=== PATIENT | female | born 1950 | race African-American/Black ===

== ENCOUNTER 2017-05-17 14:36 | Outpatient (CLI) | payer OTHER ==
[2016-03-12 14:33] VITALS: BMI 39.4
--- NOTE | 2017-05-17 16:07 | MRI ---
EXAM: MRI right shoulder without contrast COMPARISON: None available. HISTORY: Right shoulder pain. TECHNIQUE: Multiplanar noncontrast MR images of the right shoulder were acquired using a 1.2 Lulu magnet. FINDINGS: No recent radiographs of the right shoulder are available for comparison and radiographic correlation is recommended. There is moderately severe supraspinatus, infraspinatus and subscapularis tendinosis. There is a pa rtial-thickness articular surface/rim rent tear involving insertional fibers of the supraspinatus me asuring 3 mm medial lateral dimension and extending through the supraspinatus/infraspinatus junction . There is linear intrasubstance fissuring/tearing extending more proximally through the critical zo ne of the supraspinatus and infraspinatus with possible articular surface extension at that level. M inimal linear intrasubstance fissuring/tearing of the distal subscapularis. No full-thickness rotat or cuff tear or tendon retraction. Small amount of fluid in the subacromial/subdeltoid bursa. Mild to moderate atrophy of the supraspinatus, infraspinatus and subscapularis. Limited assessment of the glenoid labrum on this non arthrographic study with suspected intrasubstan ce degeneration. No paralabral cyst identified. Mild glenohumeral joint osteoarthrosis without an acute fracture or dislocation. The long head of the biceps is located within the bicipital groove with thinning of the tendon withi n its intra-articular and bicipital groove segments related to tendinosis/chronic partial tear. Marked hypertrophic degenerative changes of the acromioclavicular joint with inferiorly directed ost eophytes representing potential source of subacromial impingement. Mild anterior downsloping of the acromion. No evidence of an os acromiale or abnormal widening of the acromioclavicular joint space . No soft tissue mass identified. IMPRESSION: 1. Moderately severe rotator cuff tendinosis with partial tearing of the supraspinatus, infraspinat us and subscapularis as described. No full-thickness rotator cuff tear or tendon retraction. Mild to moderate rotator cuff muscle atrophy. 2. Marked hypertrophic degenerative changes of the acromioclavicular joint representing potential s ource of subacromial impingement. 3. Tendinosis / chronic partial tear of the long head of the biceps. 4. Mild glenohumeral joint osteoarthrosis.
== END 2017-05-17 14:37 | disposition home or self-care (01) ==
LOC: RAD 14:36
PROVIDERS: ATTEND Internal Medicine
DX: M25.511 Pain in right shoulder (principal)

== ENCOUNTER 2017-08-09 15:26 | Inpatient (IN) ==
--- NOTE | 2017-08-09 15:48 | ED.PDOC ---
General ED Provider: Dr. NARGIS GIMENEZ JR Chief Complaint: Hypertension Stated Complaint: has been having blood pressure problems for 1 week. highest bp at home was 233/112. pain down left arm. has been taking bp meds as usual. [ End ]96.7 64 20 97% 217/100 8/10 Time Seen by Physician: 16:10 Mode of Arrival: Walk-In Information Source: Patient Exam Limitations: No limitations Primary Care Provider: MERCED CHAN Nursing and Triage Documentation Reviewed and Agree: No Review of Systems - Review Of Systems Constitutional: Reports: Malaise Eyes: Reports: No symptoms Ears, Nose, Mouth, Throat: Reports: No symptoms Respiratory: Reports: No symptoms Cardiac: Reports: No symptoms GI: Reports: No symptoms : Reports: No symptoms Musculoskeletal: Reports: No symptoms Skin: Reports: Rash (family issues with bedbugs notes rash left arm) Neurological: Reports: Anxiety Endocrine: Reports: Other Hematologic/Lymphatic: Reports: Other All Other Systems: Other Past Medical History - Past Medical History Previously Healthy: Yes Endocrine: Reports: DM 2 Cardiovascular: Reports: CAD, Hypertension, CHF Respiratory: Reports: None Hematological: Reports: None Gastrointestinal: Reports: None Genitourinary: Reports: None Neuro/Psych: Reports: Anxiety, Depression Musculoskeletal: Reports: Arthritis Cancer: Reports: None Last Menstrual Period: none Other Pertinent Past Medical History: lymphedema, polymyositis, cyst on kidney, thyroid nodules,ostoarthritis - Surgical History General Surgical History: Reports: Orthopedic, Other (KNEE/RT,HERNIA,SCAR TISSUE /ARMS), Unknown - Family History Family History: Reports: Unknown - Social History Smoking Status: Current every day smoker, Light tobacco smoker Hx Substance Use: No Alcohol Screening: None Physical Exam - Physical Exam Appearance: Well-appearing Pain Distress: Moderate Eyes: MICHAEL, EOMI, Conjunctiva clear ENT: Ears normal, Nose normal, Oropharynx normal Neck: Supple Respiratory: Breath sounds diminished Cardiovascular: RRR, Pulses normal, No rub, No murmur, Bradycardia GI/: Soft, Nontender, No masses, Bowel sounds normal, No Organomegaly Musculoskeletal: Normal strength, ROM intact, No calf tenderness, Edema Skin: Warm, Dry, Normal color Neurological: Sensation intact, Motor intact, Reflexes intact, Cranial nerves intact, Alert, Oriented Psychiatric: Affect appropriate, Mood appropriate Interpretation - EKG Interpretation Time of EKG #1: 15:52 Rate: Kushal Rhythm: Sinus (57) ST Segment: Other (imi) Interpretation: nonacute Critical Care Note - Critical Care Note Total Time (mins): 30 Course - Course Hematology/Chemistry: 08/09/17 16:05 08/09/17 16:05 Orders, Labs, Meds: Lab Review 08/09/17 08/09/17 08/09/17 16:05 16:05 16:05 WBC 9.19 RBC 5.45 H Hgb 14.2 Hct 44.1 MCV 80.9 L MCH 26.1 L MCHC 32.2 RDW Coeff of Jluis 17.1 H Plt Count 262 Immature Gran % (Auto) 0.3 Neut % (Auto) 44.3 Lymph % (Auto) 44.1 [place] % (Auto) 7.0 Eos % (Auto) 4.1 Baso % (Auto) 0.2 Immature Gran # (Auto) 0.0 Neut # 4.1 Lymph # 4.1 H [place] # 0.6 Eos # 0.4 Baso # 0.0 Sodium 139 Potassium 4.4 Chloride 103 Carbon Dioxide 26 Anion Gap 14.4 BUN 12 Creatinine 0.72 Estimated GFR (MDRD) 98.00 BUN/Creatinine Ratio 16.66 Glucose 98 Calcium 9.8 Total Bilirubin 0.27 AST 13 L ALT 9 L Alkaline Phosphatase 94 Total Creatine Kinase 29 Troponin I < 0.0100 B-Natriuretic Peptide 71 Total Protein 6.8 Albumin 2.9 L Globulin 3.9 Albumin/Globulin Ratio 0.74 Orders Category Date Time Status ADMIT PATIENT INPATIENT .TO [facility] (MONITORED BED) ADMISSION 08/09/17 18: 29 Active EKG-(ED ONLY) Stat CARDIO 08/09/17 16:19 Completed EKG-(IP & OP ONLY) DAILY CARDIO 08/10/17 06:00 Ordered EKG-(IP & OP ONLY) DAILY CARDIO 08/11/17 06:00 Ordered ACTIVITY .Early Mobilization for VTE Prevention CARE 08/09/17 18:29 Active ACTIVITY .Up ad Kandice CARE 08/09/17 18:29 Active INTAKE & OUTPUT Q8HR CARE 08/09/17 18:29 Active TELEMETRY MONITORING TELE CARE 08/09/17 18:31 Active VITAL SIGNS Q4HR CARE 08/09/17 18:29 Active REGULAR DIET DIETARY 08/09/17 Dinner Ordered ED IV/MEDIPORT/POWERPORT .ONCE EMERGENCY 08/09/17 16:19 Active B-TYPE NATRIURETIC PEPTIDE Stat LAB 08/09/17 16:05 Completed CBC W/ AUTO DIFF DAILY@0600 LAB 08/10/17 06:00 Ordered CBC W/ AUTO DIFF DAILY@0600 LAB 08/11/17 06:00 Ordered CBC W/ AUTO DIFF Stat LAB 08/09/17 16:05 Completed COMPREHENSIVE METABOLIC PANEL DAILY@0600 LAB 08/10/17 06:00 Ordered COMPREHENSIVE METABOLIC PANEL DAILY@0600 LAB 08/11/17 06:00 Ordered COMPREHENSIVE METABOLIC PANEL Stat LAB 08/09/17 16:05 Completed CREATINE KINASE Q8H LAB 08/10/17 00:45 Ordered CREATINE KINASE Q8H LAB 08/10/17 08:45 Ordered CREATINE KINASE Stat LAB 08/09/17 16:05 Completed TROPONIN I Q8H LAB 08/10/17 00:45 Ordered TROPONIN I Q8H LAB 08/10/17 08:45 Ordered TROPONIN I Stat LAB 08/09/17 16:05 Completed 0.9 % Sodium Chloride [Premix 200Ml 0.86% Sodium MEDS 08/09/17 18:30 Ordered Chloride] 1 bag Nicardipine in NaCl, Iso-Osm [Cardene-NaCl 20 mg/200 ml Soln] 20 mg IV 5 mg/hr 0.9 % Sodium Chloride [Saline Flush] MEDS 08/09/17 16:19 Active 1 syr IVF PRN PRN Acetaminophen [Tylenol] MEDS 08/09/17 18:29 Ordered 650 mg PO Q4H PRN Enalaprilat Dihydrate [Vasotec IV] MEDS 08/09/17 15:49 Discontinued 1.25 mg IVP ONCE STA Nicardipine in NaCl, Iso-Osm [Cardene-NaCl 20 mg/200 ml MEDS 08/09/17 18:28 Discontinued Soln] 200 ml IV .STK-MED RESUSCITATION STATUS Routine OTHERS 08/09/17 18:29 Ordered CHEST, 1V AP ONLY Stat RADS 08/09/17 16:19 Completed Medications Generic Name Dose Route Start Last Admin Trade Name Freq PRN Reason Stop Dose Admin Acetaminophen 650 mg 08/09/17 18:29 Tylenol PO Q4H PRN Mild Pain NICARDIPINE IN NACL, ISO-OSM 200 mls @ 50 mls/hr 08/09/17 18:30 08/09/17 19: 32 20 mg/ Sodium Chloride IV 10 mg/hr .Q4H PADILLA 100 mls/hr Protocol Titration 5 MG/HR Sodium Chloride 1 syr 08/09/17 16:19 Saline Flush IVF PRN PRN To flush IV Discontinued Medications Generic Name Dose Route Start Last Admin Trade Name Freq PRN Reason Stop Dose Admin Enalaprilat 1.25 mg 08/09/17 15:49 08/09/17 16:20 Vasotec Iv IVP 08/09/17 15:50 1.25 mg ONCE STA Administration Vital Signs: Temp Pulse Resp BP Pulse Ox 08/09/17 15:27 96.7 F L 64 20 217/100 H 97 HUY Risk Score HUY Risk Score: Risk Score Odds of by 30D 0 0.1 (0.1-0.2) 1 0.3 (0.2-0.3) 2 0.4 (0.3-0.5) 3 0.7 (0.6-0.9) 4 1.2 (1.0-1.5) 5 2.2 (1.9-2.6) 6 3.0 (2.5-3.6) 7 4.8 (3.8-6.1) Departure - Departure Time of Disposition: 19:47 Disposition: ADMITTED INPATIENT Discharge Problem: Hypertensive urgency Condition: Stable Pt referred to PMD for follow-up: Yes Allergies/Adverse Reactions: Allergies duloxetine HCl [From Cymbalta] Allergy (Severe, Verified 08/09/17 15:33) Chest Tightness morphine Allergy (Intermediate, Verified 08/09/17 15:33) Unknown Home Medications: Ambulatory Orders Atenolol 50 mg PO BID 11/23/15 Captopril 50 mg PO BID 11/23/15 Folic Acid 2 mg PO DAILY 11/23/15 Hydrocodone/Acetaminophen [Lortab 5-325 mg Tablet] 1 tab PO TID 11/23/15 Metformin HCl [Glucophage] 500 mg PO DAILY 11/23/15 Ranitidine HCl 150 mg PO BID 11/23/15 Venlafaxine HCl [Effexor Xr] 150 mg PO DAILY 11/23/15 Aspirin [Aspirin EC] 81 mg PO DAILYWM 03/18/16 Calcium Carbonate/Vitamin D3 [Calcium 500 + D Tablet] 1 each PO DAILY 03/18/16
[2017-08-09] MEDS ORDERED: VASOTEC IV IVP STA (15:49)
[2017-08-09 16:34] LABS: BASOPHILS % (AUTO) 0.2 % (0.0-3.0); EOSINOPHILS # (AUTO) 0.4 K/ul (0.0-0.7); EOSINOPHILS % (AUTO) 4.1 % (0.0-7.0); HEMATOCRIT 44.1 % (37.0-47.0); HEMOGLOBIN 14.2 g/dl (12.0-16.0); IMMATURE GRANULOCYTE % (AUTO) 0.3 % (0.0-5.0); LYMPHOCYTES # (AUTO) 4.1 K/uL (0.60-3.4); LYMPHOCYTES % (AUTO) 44.1 (10.0-50.0); MEAN CORPUSCULAR HEMOGLOBIN 26.1 pg (27.0-31.0); MEAN CORPUSCULAR HGB CONC 32.2 (31.8-35.4); MEAN CORPUSCULAR VOLUME 80.9 fl (81.0-99.0); MONOCYTES # (AUTO) 0.6 K/uL (0.4-2.0); NEUTROPHILS # (AUTO) 4.1 K/ul (2.0-6.9); NEUTROPHILS % (AUTO) 44.3; PLATELET COUNT 262 10^3/uL (140-440); RED BLOOD COUNT 5.45 10^6/ul (4.20-5.40); WHITE BLOOD COUNT 9.19 K/ul (4.6-10.2)
--- NOTE | 2017-08-09 16:47 | DI ---
EXAM: CHEST FRONTAL VIEW HISTORY: Chest pain. COMPARISON: 09/28/2012 FINDINGS: Heart size and mediastinum remain within normal limits. Lungs are free of infiltrate. No consolidation or pleural fluid. There is no pneumothorax or acute bony finding. IMPRESSION: Findings within normal limits.
[2017-08-09] MEDS ORDERED: NICARDIPINE IV ONE (16:52)
[2017-08-09] MEDS ORDERED: SODIUM CHLORIDE IV ONE (16:52)
[2017-08-09 16:59] LABS: SODIUM 139 mmol/L (136-145)
[2017-08-09 17:00] LABS: ALANINE AMINOTRANSFERASE 9 U/L (12-78); ALBUMIN 2.9 g/dL (3.4-5.0); ALBUMIN/GLOBULIN RATIO 0.74; ALKALINE PHOSPHATASE 94 U/L (53-141); ANION GAP 14.4; ASPARTATE AMINO TRANSFERASE 13 U/L (15-37); BILIRUBIN,TOTAL 0.27 mg/dL (0.00-1.20); BLOOD UREA NITROGEN 12 mg/dL (7-18); BUN/CREATININE RATIO 16.66; CALCIUM 9.8 mg/dL (8.2-10.2); CARBON DIOXIDE 26 mmol/L (23-31); CHLORIDE 103 mmol/L (98-107); CREATINE KINASE 29 U/L; CREATININE 0.72 mg/dL (0.60-1.30); GLUCOSE 98 mg/dL (82-115); POTASSIUM 4.4 mmol/L (3.5-5.10); TOTAL PROTEIN 6.8 g/dL (5.8-8.1)
[2017-08-09] MEDS ORDERED: CARDENE-NACL 20 MG/200 ML SOLN 200 ML IV ONE ×2 (18:28→21:45)
[2017-08-09] MEDS: CARDENE-NACL 20 MG/200 ML SOLN 20 MG in PREMIX 200ML 0.86% SODIUM CHLORIDE 1 BAG IV SCH ×2 (18:35→21:49)
[2017-08-09] MEDS ORDERED: LASIX IVP STA (19:52)
[2017-08-09 20:47] VITALS: BMI 36.5
[2017-08-09] MEDS ORDERED: NON-FORMULARY MEDICATION (Ranitidine Hcl [Ranitidine Hcl] 150 MG) PO SCH ×22 (21:00)
[2017-08-09] MEDS ORDERED: CAPOTEN ONE (21:19)
[2017-08-09] MEDS ORDERED: ZANTAC ONE (21:19)
[2017-08-09] MEDS: CAPTOPRIL 50 MG PO SCH ×22 (21:33)
[2017-08-09] MEDS: TYLENOL PO PRN (21:33)
[2017-08-09] MEDS: TENORMIN PO SCH (21:33)
[2017-08-09] MEDS: NORCO 5-325 PO SCH (21:34)
[2017-08-10 01:47] LABS: ALBUMIN 2.8 g/dL (3.4-5.0); ALBUMIN/GLOBULIN RATIO 0.78; ANION GAP 11.6; BILIRUBIN,TOTAL 0.33 mg/dL (0.00-1.20); BUN/CREATININE RATIO 18.3; CALCIUM 10.1 mg/dL (8.2-10.2); CREATININE 0.71 mg/dL (0.60-1.30); POTASSIUM 3.6 mmol/L (3.5-5.10); TOTAL PROTEIN 6.4 g/dL (5.8-8.1)
[2017-08-10 01:55] LABS: BASOPHILS % (AUTO) 0.3 % (0.0-3.0); EOSINOPHILS # (AUTO) 0.3 K/ul (0.0-0.7); EOSINOPHILS % (AUTO) 2.8 % (0.0-7.0); HEMATOCRIT 43.4 % (37.0-47.0); HEMOGLOBIN 14.2 g/dl (12.0-16.0); IMMATURE GRANULOCYTE % (AUTO) 0.4 % (0.0-5.0); LYMPHOCYTES # (AUTO) 3.7 K/uL (0.60-3.4); LYMPHOCYTES % (AUTO) 40.6 (10.0-50.0); MEAN CORPUSCULAR HEMOGLOBIN 26.3 pg (27.0-31.0); MEAN CORPUSCULAR HGB CONC 32.7 (31.8-35.4); MEAN CORPUSCULAR VOLUME 80.4 fl (81.0-99.0); MONOCYTES # (AUTO) 0.5 K/uL (0.4-2.0); MONOCYTES % (AUTO) 4.9 (0-10); NEUTROPHILS # (AUTO) 4.7 K/ul (2.0-6.9); PLATELET COUNT 249 10^3/uL (140-440); TROPONIN I 0.013 ng/ml (0.0000-0.4000); WHITE BLOOD COUNT 9.17 K/ul (4.6-10.2)
[2017-08-10] MEDS: CARDENE-NACL 20 MG/200 ML SOLN 20 MG in PREMIX 200ML 0.86% SODIUM CHLORIDE 1 BAG IV SCH ×4 (04:17→23:07)
[2017-08-10] MEDS: TYLENOL PO PRN (06:30)
[2017-08-10] MEDS ORDERED: GLUCOPHAGE PO SCH (08:00)
[2017-08-10] MEDS ORDERED: TORADOL IVP STA (08:11)
[2017-08-10] MEDS ORDERED: DECADRON 4 MG/ML SDV IM STA (08:11)
[2017-08-10] MEDS: CAPOTEN PO SCH ×2 (08:51→20:27)
[2017-08-10] MEDS: TENORMIN PO SCH ×2 (08:51→20:27)
[2017-08-10] MEDS ORDERED: NON-FORMULARY MEDICATION (Calcium Carbonate/Vitamin D3 [Calcium 500-Vit D3 400 Tablet] 1 E PO SCH (09:00)
[2017-08-10] MEDS ORDERED: CAPOTEN PO SCH (09:00)
[2017-08-10] MEDS ORDERED: NON-FORMULARY MEDICATION (Venlafaxine Hcl [Effexor Xr] 150 MG) PO SCH ×22 (09:00)
[2017-08-10 09:10] LABS: CREATINE KINASE 25 U/L
[2017-08-10] MEDS: ZANTAC PO SCH ×2 (10:56→17:57)
[2017-08-10] MEDS: FOLIC ACID PO SCH (10:56)
[2017-08-10] MEDS: CALCIUM 500 + VIT D 200 MG TABLET PO SCH (10:56)
[2017-08-10] MEDS: ASPIRIN EC PO SCH (10:56)
[2017-08-10] MEDS: EFFEXOR XR PO SCH (10:57)
[2017-08-10] MEDS: NORCO 5-325 PO SCH ×3 (10:58→21:03)
--- NOTE | 2017-08-10 11:01 | PN ---
DATE OF SERVICE: 08/09/17 SUBJECTIVE: 67-year-old black female came to the emergency room with having high blood pressure. She has been checking it at home and it has been registering more than 220. It is confirmed with the finding in the emergency room, patient was given Vasotec IV with practically no response. Blood pressure was still 220. I talked to Dr. Zhong. Nicardiopine drip should be started. PHYSICAL EXAMINATION: HEENT: Head normocephalic, atraumatic. Eyes: Extraocular muscles are intact. Pupils are equal, round and reactive to light and accommodation. Ears: No lesions. Nose appeared normal. Throat: No exudate or erythema. NECK: Supple. No JVD, no carotid bruit. No lymphadenopathy or thyromegaly. LUNGS: Decreased breath sounds but clear to auscultation. Percussion note normal. Chest symmetrical. HEART: S1, S2, no S3. No murmurs. No cyanosis or clubbing. No ascites. Pulses: Dorsalis pedis and posterior tibial pulses +1 to +2 both sides. ABDOMEN: Soft. Nontender. Bowel sounds active. No CVA tenderness. No mass felt. EXTREMITIES: No edema. Full range of motion of all extremities, equal. NEUROLOGIC: No focal deficit. Cranial nerves II through XII are grossly intact. No headache, no double vision or headache. SKIN: Not dry. Intact. Turgor - normal. LYMPHATIC: No palpable lymph nodes/no lymphedema. MUSCULOSKELETAL: Normal joints with no swelling. Muscle tone is normal. LABS: EKG - sinus rhythm, no acute changes. ASSESSMENT: 1. SEVERE HYPERTENSION PLAN: 1. Vasotec given 2. Will start Nicardipine drip 3. Will give further orders depending on what the patient's findings are CONDITION: Stable TIME SPENT: More than 30 minutes. Plan and coordination of the patient's care discussed in the presence of nurse. RYANNE
--- NOTE | 2017-08-10 11:10 | US ---
EXAM: Ultrasound retroperitoneal complete. HISTORY: Elevated blood pressure. COMPARISON: None available. TECHNIQUE: Multiple armas scale and color Doppler images. FINDINGS: Right kidney measures 10.1 x 4.9 x 4.5 centimeters and contains a simple cyst measuring ap proximately 6.1 x 5.1 x 5.7 cm. The left kidney measures 9.8 x 4.5 x 4 cm. No echogenic shadowing s tones are seen. Cortical echogenicity is normal. There is no hydronephrosis. Urinary bladder is unremarkable. IMPRESSION: 1. No acute sonographic abnormality of the kidneys. 2. Right renal cyst.
--- NOTE | 2017-08-10 11:11 | HP ---
DATE OF SERVICE: 08/09/17 REASON FOR HOSPITALIZATION: Hypertensive crisis. HISTORY OF PRESENT ILLNESS: This 67-year-old black female came to the Emergency Department with having high blood pressure. She has been checking it at home and it has been registering more than 220. It is confirmed with the finding in the emergency room. The patient was given Vasotec IV with practically no response. Blood pressure was still 220. I talked to Dr. Zhong. Nicardipine drip should be started. The patient was last seen in the office on May 17, 2017 and at the time her blood pressure was 110/64. Prior to that in January it was 150/80. PAST MEDICAL/SURGICAL HISTORY: 1. Hysterectomy 2. Breast biopsy 3. Polymyositis for a number of years 4. Diabetes mellitus, A1C 6.117 5. B12 deficiency 6. Generalized osteoarthritis 7. Depression controlled with Effexor 8. Neuropathy 9. Osteoarthritis 10. CAD 11. Lymphedema 12. Thyroid nodules 13. Tobacco use (smoker) REVIEW OF SYSTEMS: CONSTITUTIONAL: No night sweats. No fatigue, malaise, lethargy. No fever or chills. HEENT: Eyes: No visual changes. No eye pain. No eye discharge. ENT: No runny nose. No epistaxis. No sinus pain. No sore throat. No odynophagia. No ear pain. No congestion. RESPIRATORY: No cough, no congestion. No hemoptysis. No shortness of breath. CARDIOVASCULAR: No angina symptoms. No CHF symptoms. No atypical chest pain for CAD. No palpitations. No orthopnea. GASTROINTESTINAL: No abdominal pain. No nausea or vomiting. No diarrhea or constipation. No hematemesis. No hematochezia. GENITOURINARY: No urgency. No frequency. No dysuria. No hematuria. No obstructive symptoms. No discharge. No pain. No significant abnormal bleeding. MUSCULOSKELETAL: No musculoskeletal pain. No joint swelling. No arthritis. NEUROLOGICAL: No headache. No neck pain. No syncope. No seizures. No dizziness. PSYCHIATRIC: Not anxious. No depression. No suicidal thoughts. No homicidal thoughts. SKIN: No rash. No lesions. No wounds. ENDOCRINE: No unexplained weight loss. No weight gain. HEMATOLOGIC/LYMPHATIC: No anemia. No purpura. No petechiae. No prolonged or excessive bleeding. No palpable lymph nodes. PERSONAL/FAMILY/SOCIAL HISTORY: The patient is , lives by herself, does all activity of daily living. Very intelligent. No alcohol abuse. Heavy smoker. Father at 53, gunshot wound; mother at 64, doesn't know the cause. Two brothers, four sisters, three children. MEDICATIONS: (HOME) Metformin 500 mg p.o. daily Effexor 150 mg p.o. daily Ranitidine 150 mg p.o. b.i.d. Hydrocodone/Acetaminophen (Lortab 5-325 mg) one tab p.o. t.i.d. Folic Acid 2 mg p.o. daily Captopril 50 mg p.o. b.i.d. Atenolol 50 mg p.o. b.i.d. Aspirin 81 mg p.o. daily with meal Calcium Carbonate/Vitamin D3 one each p.o. daily ALLERGIES: DULOXETINE HCI, MORPHINE PHYSICAL EXAMINATION: VITAL SIGNS: Temperature 96.7, pulse 64, BP 217/100, respiratory rate 20, 02 sat 97. Height 5'2", weight 206 lbs. HEENT: Head normocephalic, atraumatic. Eyes: Extraocular muscles are intact. Pupils are equal, round and reactive to light and accommodation. Ears: No lesions. Nose appeared normal. Throat: No exudate or erythema. NECK: Supple. No JVD, no carotid bruit. No lymphadenopathy or thyromegaly. LUNGS: Decreased breath sounds. Clear to auscultation. Percussion note normal. Chest symmetrical. HEART: S1, S2, no S3. No murmurs. No cyanosis or clubbing. No ascites. Pulses: Dorsalis pedis and posterior tibial pulses +1 to +2 both sides. ABDOMEN: Soft. Nontender. Bowel sounds active. No CVA tenderness. No mass felt. EXTREMITIES: No edema. Full range of motion of all extremities, equal. NEUROLOGIC: No focal deficit. Cranial nerves II through XII are grossly intact. No headache, no double vision or headache. SKIN: Not dry. Intact. Turgor - normal. LYMPHATIC: No palpable lymph nodes/no lymphedema. MUSCULOSKELETAL: Normal joints with no swelling. Muscle tone is normal. LABS ON ADMISSION: Hemoglobin 14, hematocrit 44, WBC 9,000, normal differential. Creatinine 0.7, BUN 12, BNP 71, troponin less than 0.01. Liver profile normal. EKG normal sinus rhythm, no acute changes. ASSESSMENT: 1. HYPERTENSIVE URGENCY 2. DIABETES MELLITUS, TYPE 2 3. CHF 4. DEPRESSION 5. ANXIETY 6. OSTEOARTHRITIS 7. CAD 8. LYMPHEDEMA 9. THYROID NODULES 10. SMOKER PLAN: 1. Admit to SCU for monitoring 2. V/S q.4hr 3. Cardene drip on arrival 4. Medication management 5. Labs today 6. Cardiac labs q.8hr times 2 TIME SPENT: More than 70 minutes. MTDD
--- NOTE | 2017-08-10 11:15 | US ---
EXAM: Renal artery duplex Doppler HISTORY: Hypertension FINDINGS: Renal artery duplex Doppler. Flores-scale ultrasound, color Doppler imaging and spectral an alysis performed. Exam was described as technically difficult. Values presented included include the below. Aortic velocity (meters per second): 0.6 Aortic diameter: 1.7 cm. IVC: Open Renal veins: Open The right kidney measured 10.1 cm and the left kidney 9.8 cm. No noticeable hydronephrosis. Right renal artery peak systolic velocities (meters per second). Origin: 2.9 Mid: 2.4 Renal Hilum: 1.5 Right renal artery/Aortic Ratios: Origin: 4.8 Mid: 4.0 Renal Hilum: 2.5 Left renal artery peak systolic velocities (meters per second). Origin: 0.4 Mid: 1.5 Renal Hilum: 1.4 Left renal artery/Aortic Ratios: Origin: 0.7 Mid: 2.5 Renal Hilum: 2.3 Right renal resistive index was 1.0 Left renal resistive index was 1.0 IMPRESSION: Technically difficult exam especially on the right. The recorded peak systolic velociti es indicate hemodynamically significant stenosis of the right renal artery ostium and also mid renal artery. No hemodynamically significant stenosis identified on the left. Elevated bilateral renal resistive pascale bam at 1.0.
[2017-08-10] MEDS ORDERED: ZITHROMAX PO SCH (12:30)
--- NOTE | 2017-08-10 14:01 | PCM.PROG ---
Attending Provider: ATTENDING PROVIDER: Dr. MERCED CHAN DATE OF SERVICE: 08/10/17 SUBJECTIVE: This 67 year old BLACK/ F was hospitalized 08/09/17. The patient is hospitalized with severe hypertension. The patient's blood pressure is under control and Nicardipine drip is off. Blood pressure is 145/85. The patient's other problem is the beginning of bronchitis type of symptoms. No chest pain. REVIEW OF SYSTEMS: CONSTITUTIONAL: No night sweats. No fatigue, malaise, lethargy. No fever or chills. HEENT: Eyes: No visual changes. No eye pain. No eye discharge. ENT: No runny nose. No epistaxis. No sinus pain. No odynophagia. No congestion. RESPIRATORY: No cough, no congestion. No hemoptysis. No shortness of breath. CARDIOVASCULAR: No angina symptoms. No CHF symptoms. No atypical chest pain for CAD. No palpitations. No orthopnea.. GASTROINTESTINAL: No abdominal pain. No nausea or vomiting. No diarrhea or constipation. No hematemesis. No hematochezia. GENITOURINARY: No urgency. No frequency. No dysuria. No hematuria. No obstructive symptoms. No discharge. No pain. No significant abnormal bleeding. MUSCULOSKELETAL: No musculoskeletal pain; no joint swelling. NEUROLOGICAL: Awake, alert, oriented to time, place and person. No headache. No neck pain. No syncope. No seizures. No dizziness. PSYCHIATRIC: Not anxious. No depression. No suicidal thoughts. No homicidal thoughts. SKIN: No rash. No lesions. No wounds. ENDOCRINE: No unexplained weight loss. No weight gain. HEMATOLOGIC/LYMPHATIC: No anemia. No purpura. No petechiae. No prolonged or excessive bleeding. No palpable lymph nodes. PHYSICAL EXAMINATION: GENERAL: The patient is awake, alert and oriented, lying in bed in no distress. VITAL SIGNS: Temperature 98.3 F, Pulse 59, Respiratory Rate 14, BP 165/80, Pulse Ox 96% HEENT: Head normocephalic, atraumatic. Eyes: Extraocular muscles are intact. Pupils are equal, round and reactive to light and accommodation. Ears: No lesions. Nose appeared normal. Throat: No exudate or erythema. NECK: Supple. No JVD, no carotid bruit. No lymphadenopathy or thyromegaly. LUNGS: Decreased breath sounds. Clear to auscultation. Percussion note normal. Chest symmetrical. HEART: S1, S2, no S3. No murmurs. No cyanosis or clubbing. No ascites. Pulses: Dorsalis pedis and posterior tibial pulses +1 to +2 both sides. ABDOMEN: Soft. Non-tender. Bowel sounds active. No CVA tenderness. No mass felt. EXTREMITIES: No edema. Full range of motion of all extremities, equal. NEUROLOGIC: No focal deficit. Cranial nerves II through XII are grossly intact. No headache, no double vision or headache. SKIN: Not dry. Intact. Turgor-normal. LYMPHATIC: No palpable lymph nodes/no lymphedema. MUSCULOSKELETAL: Normal joints with no swelling. Muscle tone is normal. LAB REVIEW: 08/10/17 01:06 08/10/17 01:06 08/10/17 01:06: Sodium 139, Potassium 3.6, Chloride 104, Carbon Dioxide 27, Anion Gap 11.6, BUN 13, Creatinine 0.71, Estimated GFR (MDRD) 99.00, BUN/ Creatinine Ratio 18.30, Glucose 129 H, Calcium 10.1, Total Bilirubin 0.33, AST 13 L, ALT 9 L, Alkaline Phosphatase 90, Total Protein 6.4, Albumin 2.8 L, Globulin 3.6, Albumin/Globulin Ratio 0.78 08/10/17 01:06: WBC 9.17, RBC 5.40, Hgb 14.2, Hct 43.4, MCV 80.4 L, MCH 26.3 L, MCHC 32.7, RDW Coeff of Jluis 16.7 H, Plt Count 249, Immature Gran % (Auto) 0.4, Neut % (Auto) 51.0, Lymph % (Auto) 40.6, [place] % (Auto) 4.9, Eos % (Auto) 2.8, Baso % (Auto) 0.3, Immature Gran # (Auto) 0.0, Neut # 4.7, Lymph # 3.7 H, [place] # 0.5, Eos # 0.3, Baso # 0.0 08/10/17 01:06: Total Creatine Kinase 28, Troponin I 0.0130 ASSESSMENT: 1. Hypertension seems to be getting under control. 2. Acute bronchitis. PLAN: 1. 1/2 cc Decadron IM 2. Toradol 30 mg IV 3. Z-Pack 4. Captopril 75 mg b.i.d. 5. Renal blood flow - ultrasound and Doppler 6. DASH diet, BMI 37, advised weight loss Plan and coordination of the patient's care discussed in the presence of Academic Affairs Vice President and nurse. CONDITION: Stable SCRIBED BY: ABISAI RADER Senior Occupational Therapist scribed while in presence of service performed by Dr. MERCED CHAN on 08/10/17 ([id number])
--- NOTE | 2017-08-10 16:26 | CT ---
Exam: CTA of the abdomen and pelvis with intravenous contrast and 3-D MIP reformats. Reason for exam: Right renal artery stenosis. Doppler flow. Comparison: None available. FINDINGS: Mild atelectasis and scarring in the partially imaged lung bases. The liver is lower in attenuation in the spleen. The gallbladder, spleen, adrenal glands, and pancreas appear grossly unremarkable. There is a 6.3 cm hypodensity in the right inferior renal pole. There are several other smaller selwyn l hypodensities bilaterally. No hydronephrosis, nephrolithiasis, or hydroureter is seen in either ki dney. No intra-abdominal free air or pelvic free fluid. There is a tiny only fat containing rectus diastases. No focal small bowel dilatation or transition point. 8 mm hepatic hypodensity seen on axial image number 41. Nodular density is seen in the left breast parenchyma on axial image #7. Atherosclerotic disease is seen within the aorta and distal arterial vasculature. There is calcified and noncalcified atheromatous plaque seen within the abdominal aorta with contrast opacification see n in the superior mesenteric, celiac, paired renal, and inferior mesenteric arteries. There is contr ast opacification of the abdominal aorta to the common iliacs and external bifurcation. The external common iliac arteries bilaterally do not demonstrate contrast opacification. There is r econstitution at the level of the left and right femoral arteries likely secondary to collateralizati on. No aneurysmal dilatation or evidence of dissection. No suspicious appearing osteoblastic or osteolytic lesions. Impression: 1. There is contrast opacification of the superior mesenteric, celiac, paired renal, and inferior mes enteric arteries with dense atherosclerotic disease seen throughout the aorta and distal arterial vas culature. No significant contrast opacification is seen in the left or right external iliac arteries. Contrast opacification is seen at the level of the femoral arteries bilaterally likely secondary fr om collateralization. 2. Renal hypodensities measuring up to 6.3 cm are statistically cysts. Ultrasound evaluation may be performed for further characterization. 3. Nodular density in the left breast tissue. If clinical concern exists, mammographic consultation should be performed. 4. 8 mm hepatic hypodensity is too small to be accurately characterized
[2017-08-11] MEDS: CARDENE-NACL 20 MG/200 ML SOLN 20 MG in PREMIX 200ML 0.86% SODIUM CHLORIDE 1 BAG IV SCH ×3 (00:51→10:18)
[2017-08-11 05:12] LABS: BASOPHILS % (AUTO) 0.3 % (0.0-3.0); EOSINOPHILS # (AUTO) 0.1 K/ul (0.0-0.7); EOSINOPHILS % (AUTO) 0.6 % (0.0-7.0); HEMATOCRIT 39.1 % (37.0-47.0); HEMOGLOBIN 12.9 g/dl (12.0-16.0); IMMATURE GRANULOCYTE % (AUTO) 0.4 % (0.0-5.0); LYMPHOCYTES # (AUTO) 2.9 K/uL (0.60-3.4); LYMPHOCYTES % (AUTO) 36.4 (10.0-50.0); MEAN CORPUSCULAR HEMOGLOBIN 26.2 pg (27.0-31.0); MEAN CORPUSCULAR VOLUME 79.3 fl (81.0-99.0); MONOCYTES # (AUTO) 0.6 K/uL (0.4-2.0); MONOCYTES % (AUTO) 6.9 (0-10); NEUTROPHILS # (AUTO) 4.4 K/ul (2.0-6.9); NEUTROPHILS % (AUTO) 55.4; PLATELET COUNT 243 10^3/uL (140-440); RED BLOOD COUNT 4.93 10^6/ul (4.20-5.40); WHITE BLOOD COUNT 7.99 K/ul (4.6-10.2)
[2017-08-11 05:39] LABS: ALBUMIN 2.6 g/dL (3.4-5.0); ALBUMIN/GLOBULIN RATIO 0.72; ANION GAP 12.3; BILIRUBIN,TOTAL 0.25 mg/dL (0.00-1.20); BUN/CREATININE RATIO 26.92; CALCIUM 9.9 mg/dL (8.2-10.2); CREATININE 0.78 mg/dL (0.60-1.30); POTASSIUM 4.3 mmol/L (3.5-5.10); TOTAL PROTEIN 6.2 g/dL (5.8-8.1)
[2017-08-11] MEDS: ZANTAC PO SCH ×2 (05:50→17:08)
[2017-08-11] MEDS: CALCIUM 500 + VIT D 200 MG TABLET PO SCH (08:46)
[2017-08-11] MEDS: ASPIRIN EC PO SCH (08:46)
[2017-08-11] MEDS: EFFEXOR XR PO SCH (08:47)
[2017-08-11] MEDS: CAPOTEN PO SCH (08:47)
[2017-08-11] MEDS: NORCO 5-325 PO SCH ×3 (08:47→20:08)
[2017-08-11] MEDS: FOLIC ACID PO SCH (08:47)
[2017-08-11] MEDS: TENORMIN PO SCH ×2 (08:48→20:09)
[2017-08-11] MEDS: ZITHROMAX PO SCH (08:48)
[2017-08-11] MEDS ORDERED: APRESOLINE PO SCH (09:30)
--- NOTE | 2017-08-11 10:04 | PCM.PROG ---
Attending Provider: ATTENDING PROVIDER: Dr. MERCED CHAN This patient is seen with Shirley Gonzales, Nurse Practitioner. DATE OF SERVICE: 08/11/17 SUBJECTIVE: This 67 year old BLACK/ F was hospitalized 08/09/17. The patient is lying in bed, alert. She had ultrasound of kidneys and CTA of abdomen yesterday, which showed right renal artery stenosis, left renal artery normal. The patient states she has a lot of stress at home. REVIEW OF SYSTEMS: CONSTITUTIONAL: No night sweats. No fatigue, malaise, lethargy. No fever or chills. HEENT: Eyes: No visual changes. No eye pain. No eye discharge. ENT: No runny nose. No epistaxis. No sinus pain. No odynophagia. No congestion. RESPIRATORY: No cough, no congestion. No hemoptysis. No shortness of breath. CARDIOVASCULAR: No angina symptoms. No CHF symptoms. No atypical chest pain for CAD. No palpitations. No orthopnea.. GASTROINTESTINAL: No abdominal pain. No nausea or vomiting. No diarrhea or constipation. No hematemesis. No hematochezia. GENITOURINARY: No urgency. No frequency. No dysuria. No hematuria. No obstructive symptoms. No discharge. No pain. No significant abnormal bleeding. MUSCULOSKELETAL: No musculoskeletal pain; no joint swelling. NEUROLOGICAL: Awake, alert, oriented to time, place and person. No headache. No neck pain. No syncope. No seizures. No dizziness. PSYCHIATRIC: Not anxious. No depression. No suicidal thoughts. No homicidal thoughts. SKIN: No rash. No lesions. No wounds. ENDOCRINE: No unexplained weight loss. No weight gain. HEMATOLOGIC/LYMPHATIC: No anemia. No purpura. No petechiae. No prolonged or excessive bleeding. No palpable lymph nodes. PHYSICAL EXAMINATION: GENERAL: The patient is awake, alert and oriented, lying/sitting in bed in no distress. VITAL SIGNS: Temperature 98.9 F, Pulse 60, Respiratory Rate 16, BP 148/73, Pulse Ox 97% HEENT: Head normocephalic, atraumatic. Eyes: Extraocular muscles are intact. Pupils are equal, round and reactive to light and accommodation. Ears: No lesions. Nose appeared normal. Throat: No exudate or erythema. NECK: Supple. No JVD, no carotid bruit. No lymphadenopathy or thyromegaly. LUNGS: Diminished breath sounds bilaterally. Clear to auscultation. Percussion note normal. Chest symmetrical. HEART: S1, S2, no S3. No murmurs. No cyanosis or clubbing. No ascites. Pulses: Dorsalis pedis and posterior tibial pulses +1 to +2 both sides. ABDOMEN: Soft. Non-tender. Bowel sounds active. No CVA tenderness. No mass felt. EXTREMITIES: No edema. Full range of motion of all extremities, equal. NEUROLOGIC: No focal deficit. Cranial nerves II through XII are grossly intact. No headache, no double vision or headache. SKIN: Not dry. Intact. Turgor-normal. LYMPHATIC: No palpable lymph nodes/no lymphedema. MUSCULOSKELETAL: Normal joints with no swelling. Muscle tone is normal. LAB REVIEW: 08/11/17 04:53 08/11/17 04:53 08/11/17 04:53: Sodium 138, Potassium 4.3, Chloride 103, Carbon Dioxide 27, Anion Gap 12.3, BUN 21 H, Creatinine 0.78, Estimated GFR (MDRD) 89.00, BUN/ Creatinine Ratio 26.92, Glucose 121 H, Calcium 9.9, Total Bilirubin 0.25, AST 10 L, ALT 8 L, Alkaline Phosphatase 76, Total Protein 6.2, Albumin 2.6 L, Globulin 3.6, Albumin/Globulin Ratio 0.72 08/11/17 04:53: WBC 7.99, RBC 4.93, Hgb 12.9, Hct 39.1, MCV 79.3 L, MCH 26.2 L, MCHC 33.0, RDW Coeff of Jluis 16.6 H, Plt Count 243, Immature Gran % (Auto) 0.4, Neut % (Auto) 55.4, Lymph % (Auto) 36.4, [place] % (Auto) 6.9, Eos % (Auto) 0.6, Baso % (Auto) 0.3, Immature Gran # (Auto) 0.0, Neut # 4.4, Lymph # 2.9, [place] # 0.6, Eos # 0.1, Baso # 0.0 08/10/17 08:35: Total Creatine Kinase 25, Troponin I < 0.0100 ASSESSMENT: 1. Hypertension seems to be getting under control. 2. Acute bronchitis. 3. Right renal artery stenosis PLAN: 1 Blood pressure q.4hr manually 2. Refer to vascular surgeon Plan and coordination of the patient's care discussed in the presence of Forming And Assembling Supervisor and nurse. CONDITION: Stable SCRIBED BY: Salomon CHARLESist scribed while in presence of service performed by Dr. Chan/Shirley Gonzales APRN on 08/11/17 ([id number])
[2017-08-11] MEDS: HYDROCHLOROTHIAZIDE PO SCH (15:09)
[2017-08-11] MEDS: COZAAR PO SCH (15:09)
[2017-08-11] MEDS ORDERED: NORVASC PO SCH (21:00)
[2017-08-12] MEDS: ZANTAC PO SCH (06:07)
[2017-08-12 07:29] LABS: BASOPHILS % (AUTO) 0.5 % (0.0-3.0); EOSINOPHILS # (AUTO) 0.2 K/ul (0.0-0.7); EOSINOPHILS % (AUTO) 2.8 % (0.0-7.0); HEMATOCRIT 40.8 % (37.0-47.0); HEMOGLOBIN 13.1 g/dl (12.0-16.0); IMMATURE GRANULOCYTE % (AUTO) 0.3 % (0.0-5.0); LYMPHOCYTES # (AUTO) 4.3 K/uL (0.60-3.4); LYMPHOCYTES % (AUTO) 56.6 (10.0-50.0); MEAN CORPUSCULAR HEMOGLOBIN 25.8 pg (27.0-31.0); MEAN CORPUSCULAR HGB CONC 32.1 (31.8-35.4); MEAN CORPUSCULAR VOLUME 80.3 fl (81.0-99.0); MONOCYTES # (AUTO) 0.6 K/uL (0.4-2.0); MONOCYTES % (AUTO) 7.6 (0-10); NEUTROPHILS # (AUTO) 2.5 K/ul (2.0-6.9); NEUTROPHILS % (AUTO) 32.2; PLATELET COUNT 234 10^3/uL (140-440); RED BLOOD COUNT 5.08 10^6/ul (4.20-5.40); WHITE BLOOD COUNT 7.63 K/ul (4.6-10.2)
[2017-08-12 07:56] LABS: ANION GAP 12.1; BUN/CREATININE RATIO 21.51; CALCIUM 9.7 mg/dL (8.2-10.2); CREATININE 0.79 mg/dL (0.60-1.30); POTASSIUM 4.1 mmol/L (3.5-5.10)
[2017-08-12] MEDS: HYDROCHLOROTHIAZIDE PO SCH (08:27)
[2017-08-12] MEDS: NORCO 5-325 PO SCH (08:27)
[2017-08-12] MEDS: CALCIUM 500 + VIT D 200 MG TABLET PO SCH (08:28)
[2017-08-12] MEDS: ASPIRIN EC PO SCH (08:28)
[2017-08-12] MEDS: FOLIC ACID PO SCH (08:28)
[2017-08-12] MEDS: TENORMIN PO SCH (08:29)
[2017-08-12] MEDS: EFFEXOR XR PO SCH (08:29)
[2017-08-12] MEDS: ZITHROMAX PO SCH (08:29)
[2017-08-12] MEDS: COZAAR PO SCH (08:35)
--- NOTE | 2017-08-12 09:29 | PCM.PROG ---
Attending Provider: ATTENDING PROVIDER: Dr. MERCED CHAN This patient is seen with Shirley Gonzales, Nurse Practitioner. DATE OF SERVICE: 08/12/17 SUBJECTIVE: This 67 year old BLACK/ F was hospitalized 08/09/17. The patient is lying in bed, alert. She states she feels better today. She states she slept well last night. Blood pressure is significantly improved. CMP pending. REVIEW OF SYSTEMS: CONSTITUTIONAL: No night sweats. No fatigue, malaise, lethargy. No fever or chills. HEENT: Eyes: No visual changes. No eye pain. No eye discharge. ENT: No runny nose. No epistaxis. No sinus pain. No odynophagia. No congestion. RESPIRATORY: No cough, no congestion. No hemoptysis. No shortness of breath. CARDIOVASCULAR: No angina symptoms. No CHF symptoms. No atypical chest pain for CAD. No palpitations. No orthopnea.. GASTROINTESTINAL: No abdominal pain. No nausea or vomiting. No diarrhea or constipation. No hematemesis. No hematochezia. GENITOURINARY: No urgency. No frequency. No dysuria. No hematuria. No obstructive symptoms. No discharge. No pain. No significant abnormal bleeding. MUSCULOSKELETAL: No musculoskeletal pain; no joint swelling. NEUROLOGICAL: Awake, alert, oriented to time, place and person. No headache. No neck pain. No syncope. No seizures. No dizziness. PSYCHIATRIC: Not anxious. No depression. No suicidal thoughts. No homicidal thoughts. SKIN: No rash. No lesions. No wounds. ENDOCRINE: No unexplained weight loss. No weight gain. HEMATOLOGIC/LYMPHATIC: No anemia. No purpura. No petechiae. No prolonged or excessive bleeding. No palpable lymph nodes. PHYSICAL EXAMINATION: GENERAL: The patient is awake, alert and oriented, lying in bed in no distress. VITAL SIGNS: Temperature 98.6 F, Pulse 82, Respiratory Rate 16, BP 124/75, Pulse Ox 95% HEENT: Head normocephalic, atraumatic. Eyes: Extraocular muscles are intact. Pupils are equal, round and reactive to light and accommodation. Ears: No lesions. Nose appeared normal. Throat: No exudate or erythema. NECK: Supple. No JVD, no carotid bruit. No lymphadenopathy or thyromegaly. LUNGS: Clear to auscultation. Percussion note normal. Chest symmetrical. HEART: S1, S2, no S3. No murmurs. No cyanosis or clubbing. No ascites. Pulses: Dorsalis pedis and posterior tibial pulses +1 to +2 both sides. ABDOMEN: Soft. Non-tender. Bowel sounds active. No CVA tenderness. No mass felt. EXTREMITIES: No edema. Full range of motion of all extremities, equal. NEUROLOGIC: No focal deficit. Cranial nerves II through XII are grossly intact. No headache, no double vision or headache. SKIN: Not dry. Intact. Turgor-normal. LYMPHATIC: No palpable lymph nodes/no lymphedema. MUSCULOSKELETAL: Normal joints with no swelling. Muscle tone is normal. LAB REVIEW: 08/12/17 07:05 08/11/17 04:53 08/12/17 07:05: WBC 7.63, RBC 5.08, Hgb 13.1, Hct 40.8, MCV 80.3 L, MCH 25.8 L, MCHC 32.1, RDW Coeff of Jluis 16.8 H, Plt Count 234, Immature Gran % (Auto) 0.3, Neut % (Auto) 32.2, Lymph % (Auto) 56.6 H, [place] % (Auto) 7.6, Eos % (Auto) 2.8, Baso % (Auto) 0.5, Immature Gran # (Auto) 0.0, Neut # 2.5, Lymph # 4.3 H, [place] # 0.6, Eos # 0.2, Baso # 0.0 ASSESSMENT: 1. Hypertension seems to be resolved 2. Acute bronchitis. improved 3. Right renal artery stenosis, questionable CTA PLAN: 1. Discharge home. 2. The patient will be seen in followup with Dr. Chan/Shirley Gonzales APRN in the office on Tuesday 3. Rest over the weekend Plan and coordination of the patient's care discussed in the presence of Electronics Engineering Manager and nurse. CONDITION: Stable SCRIBED BY: ABISAI RADER Quarrying Specialist scribed while in presence of service performed by Dr. Chan/Shirley Gonzales APRN on 08/12/17 ([id number])
[2017-08-12 10:05] VITALS: BP 159/76; TEMP 97.9
--- NOTE | 2017-08-12 11:22 | CM.DICTOOL ---
ADMISSION: 08/09/17 19:41 DISCHARGE: August 12, 2017 DATE OF SERVICE: 08/12/17 FINAL DIAGNOSIS Hypertensive urgency Renal Artery Stenosis, right per doppler Diabetes Mellitus, type 2 Polymyositis Neuropathy CHF Depression Anxiety Osteoarthritis CAD Lymphedema Thyroid Nodules Smoker B12 Deficiency LAST VITALS Temp Pulse Resp BP Pulse Ox 98.6 F 82 16 124/75 95 08/12/17 05:25 08/12/17 05:25 08/12/17 05:25 08/12/17 05:25 08/12/17 05:25 ACTIVE HOME MEDICATIONS Acetaminophen/Hydrocodone Bitart ([place] 5-325) 1 tab PO TID [facility] Last Admin: 08/12/17 08:27 Dose: 1 tab Aspirin (Aspirin Ec) 81 mg PO DAILYWM [facility] Last Admin: 08/12/17 08:28 Dose: 81 mg Atenolol (Tenormin) 50 mg PO BID [facility] Last Admin: 08/12/17 08:29 Dose: 50 mg Calcium/Vitamin D (Calcium 500 + Vit D 200 Mg Tablet) 1 each PO DAILY [facility] Last Admin: 08/12/17 08:28 Dose: 1 each Folic Acid (Folic Acid) 2 mg PO DAILY [facility] Last Admin: 08/12/17 08:28 Dose: 2 mg Metformin HCL (Glucophage) 500 mg Daily Last Admin: 08/10/17 10:56 Dose: 500 mg Ranitidine HCl (Zantac) 150 mg PO BIDAC [facility] Last Admin: 08/12/17 06:07 Dose: 150 mg Venlafaxine HCl (Effexor Xr) 150 mg PO DAILY [facility] Last Admin: 08/12/17 08:29 Dose: 150 mg ALLERGIES duloxetine HCl [From Cymbalta] Allergy (Severe, Verified 08/09/17 15:33) Chest Tightness morphine Allergy (Intermediate, Verified 08/09/17 15:33) Unknown NEW PRESCRIPTIONS: Zithromax 250 mg daily for 2 days Norvasc 5 mg daily at bedtime Hyzaar 100-12.5 daily SMOKING: Counseling for smoking done; advised to stop DISEASE SPECIFIC EDUCATION: Hypertension Diet Medications Appointment LAB REVIEW: 08/12/17 07:05 08/12/17 07:05 08/12/17 07:05: Sodium 141, Potassium 4.1, Chloride 104, Carbon Dioxide 29, Anion Gap 12.1, BUN 17, Creatinine 0.79, Estimated GFR (MDRD) 88.00, BUN/ Creatinine Ratio 21.51, Glucose 94, Calcium 9.7 08/12/17 07:05: WBC 7.63, RBC 5.08, Hgb 13.1, Hct 40.8, MCV 80.3 L, MCH 25.8 L, MCHC 32.1, RDW Coeff of Jluis 16.8 H, Plt Count 234, Immature Gran % (Auto) 0.3, Neut % (Auto) 32.2, Lymph % (Auto) 56.6 H, Martin % (Auto) 7.6, Eos % (Auto) 2.8, Baso % (Auto) 0.5, Immature Gran # (Auto) 0.0, Neut # 2.5, Lymph # 4.3 H, Martin # 0.6, Eos # 0.2, Baso # 0.0 PLAN: Discharge home Diet: DASH diet Activity: Gradually resume as tolerated Continue to check your blood pressure at least 1-2 times daily. Medications that have been discontinued: Captopril 50 mg BID Medications that are on hold: Metformin 500 mg daily is on hold due to CTA abdomen/pelvis. The patient may resume this medication on Tuesday, August 13. An appointment is scheduled with Dr. Miller/Shirley Gonzales APRN on August 16 at 2 pm. The patient may be referred at a later date to a vascular surgeon due to possible right renal artery stenosis noted on a renal doppler flow ultrasound. The CTA of the abdomen/pelvis did not make mention of this and we have asked for a clarification from [facility]. Ms. Gaby Bryant is alert and oriented x 3. She is independent with Activities of Daily Living and is ambulatory with use of a rollator in the room. She has a good appetite and is eating 100% of her meals. No skin breakdown, rashes or irritation are noted. She reports she has a rolling walker, shower chair, standard walker and a blood pressure cuff at home. Srinivas Miller MD Shirley Gonzales APRN
--- NOTE | 2017-08-15 09:45 | PN ---
DATE OF SERVICE: 08/11/17 SUBJECTIVE: 67 year old black female hospitalized with hypertensive crisis. The radiologist is going to review CTA angiogram of the abdomen and pelvis again in conjunction with ultrasound of the renal artery port. They are going to call us back. In the CTA report the radiologist has mention to correlate it was ultrasound of the renal artery but the renal artery showed right renal artery stenosis with the ultrasound that was done prior to CTA angiogram. This morning the blood pressure systolic is 170. It has fluctuated from 160 to 190. We will discontinued Hydralazine. We will put her on Norvasc 5mg at night. The patient was not on diuretic. We will also add hydralazine 25mg twice a day. Continue Beta lluvia. The patient's echocardiogram was done which shows borderline LVH with enlarged LA cavity, normal LV function.All this explained to the patient and she is agreeable. CONDITION: Stable The patient was seen and examined with Nurse Practitioner. TIME SPENT: More than 30 minutes. Plan and coordination of the patient's care discussed in the presence of nurse. RYANNE
--- NOTE | 2017-08-15 09:51 | ECHO2D ---
Date of Exam: 08/11/17 Ordering Physician: MERCED CHAN MD Reason for Echo: HYPERTENSION, EVALUATE LEFT VENTRICULAR FUNCTION M-Mode Normal Adult Results LV Dimensions Normal Adult Results AoV Opening excursions >1.6 >1.6 LVEDD-base- 3.5-5.8 4.6 Ao root dimensions 2.0-3.7 3.2 LVESD-base- 3.1-4.6 L. Atrium dimensions 1.9-3.8 4.2 Post. Wall thickness 0.8-1.1 1.2 IV septum (thickness) 0.7-1.2 1.2 Post. Wall excursion 0.72-1.3 NORMAL Septal motion NORMAL Systolic motion R. Ventricular cavity 1.5-2.0 NORMAL LVEF 60% 71% Paradoxical septal wall motion NORMAL 2-D : 2-D M Mode Echocardiogram was performed using apical four chamber and left parasternal long and short axis views. Mitral, tricuspid and aortic valves appear to be normal. Contractility of the left ventricle seems to be normal, so is the cavity size. Left atrial cavity size and aortic root appear to be normal. There is no pericardial effusion. There is no thrombus noted in the left ventricular or left aortic cavity. No mitral valve prolapse noted. M-MODE: MV: NORMAL AV: NORMAL TV: NORMAL PV: CHAMBER SIZE: ENLARGED LEFT ATRIAL CAVITY WALL MOTION: NORMAL PERICARDIUM: NORMAL INTERPRETATION: 1. BORDERLINE LEFT VENTRICULAR HYPERTROPHY WITH ENLARGED LEFT ATRIAL CAVITY 2. NORMAL LEFT VENTRICULAR CONTRACTILITY 3. NORMAL VALVES MTDD
--- NOTE | 2017-08-15 13:04 | DS ---
DATE OF SERVICE: 08/12/17 FINAL DIAGNOSIS: 1. HYPERTENSIVE URGENCY 2. RENAL ARTERY STENOSIS, RIGHT PER DOPPLER 3. DIABETES MELLITUS TYPE 2 4. POLYMYOSITIS 5. NEUROPATHY 6. CHF 7. DEPRESSION 8. ANXIETY 9. OSTEOARTHRITIS 10. CAD 11. LYMPHEDEMA 12. THYROID NODULES 13. SMOKER 14. B12 DEFICIENCY DISCHARGE INSTRUCTIONS: Followup appointment has been scheduled with Dr. Miller/Shirley Gonzales APRN on 08/16/17 at 2 p.m. The patient may be referred at a later date to a vascular surgeon due to possible right renal artery stenosis noted on a renal doppler flow ultrasound. The CT of the abdomen and pelvis did not make mention of this and we have asked for a clarification from [facility]. Continue to check blood pressure at least 1-2 times daily. MEDICATIONS AT DISCHARGE: Acetaminophen/Hydrocodone ([place] 5-325) one tab p.o. t.i.d. PADILLA Aspirin 81 mg p.o. daily with meal Atenolol 50 mg p.o. b.i.d. PADILLA Calcium/Vitamin D (Calcium 500 + Vitamin D 200 mg one each p.o. daily PADILLA Folic Acid 2 mg p.o. daily PADILLA Metformin 500 mg daily Ranitidine 150 mg p.o. b.i.d. a.c. PADILLA Venlafaxne 150 mg p.o. daily PADILLA MEDICATIONS THAT HAVE BEEN DISCONTINUED: Captopril 50 mg b.i.d. MEDICATIONS THAT ARE ON HOLD: Metformin 500 mg daily that is on hold due to CTA abdomen/pelvis. The patient may resume this medication on Tuesday, August 13. NEW PRESCRIPTIONS: Zithromax 250 mg daily for 2 days Norvasc 5 mg daily at bedtime Hyzaar 100-12.5 daily DIET INSTRUCTIONS: DASH diet ACTIVITY: Gradually resume as tolerated. SMOKING: Counseling for smoking done; advised to stop DISEASE SPECIFIC EDUCATION: Hypertension Diet Medications Appointment HOSPITAL COURSE: This is a 67-year-old -Mal[place] female who presented to the Emergency Room on 08/09 complaining of headache. It was found she had blood pressure up to 200/180. She was subsequently admitted and placed on the Special Care Unit. She had been taking her Captopril 50 mg b.i.d. She was admitted and initially started on Captopril 50 mg t.i.d. with Norvasc. Her chest x-ray was normal but she was also experiencing some cough, congestion and sinus drainage although she was afebrile. After being placed in Special Care on the next day she had a renal doppler ultrasound which showed right renal artery stenosis. A CTA of the abdomen and pelvis was then done to further evaluate the renal artery stenosis. However, there was no mention of right renal artery stenosis on the CTA. This is questionable and still being under further investigation by the radiologist. The patient was started on Zithromax 250 mg daily for her acute sinusitis. Her blood pressure was still elevated on the second day after admission at 170/85. Dr. Miller then discontinued her Captopril and put her on Norvasc 5 mg at bedtime and Hyzaar 100/12.5 mg in the morning. After making this medication change, her blood pressure has been remarkably well. Today at time of discharge , blood pressure was 124/75 with a heart rate of 82, respirations 16 and pulse ox 95%. The patient is a smoker. She does have a history of diabetes mellitus Type 2 along with COPD. She is obese. She has the information regarding smoking cessation which has been provided and she has been advised to stop. She has been given information regarding her medication changes and instructed to check her blood pressure weekly at home. Her vital signs have been stable including her kidney function. Today on day of discharge, BUN 17, creatinine 0.79, sodium 141, potassium 4.1, hemoglobin 14.8, white count 7.63. The patient's BMI is over 30. Information was provided regarding DASH diet with limited salt intake and instructed to exercise 3 to 5 times a week for at least 30 to 60 minutes. Again, her condition has improved remarkably well. Her vital signs are stable. Blood pressure is now within normal limits and seems to be under control. We will see her next Tuesday in the office and further consider vascular referral for the possibility of renal artery stenosis via Doppler. TIME SPENT: More than 60 minutes. RYANNE
--- NOTE | 2017-08-16 13:06 | PN ---
DATE OF SERVICE: 08/12/17 SUBJECTIVE: 67-year-old black female hospitalized with hypertensive crisis. The patient's blood pressure is controlled. This morning it is 124/75, is feeling better. PHYSICAL EXAMINATION: HEENT: Head normocephalic, atraumatic. Eyes: Extraocular muscles are intact. Pupils are equal, round and reactive to light and accommodation. Ears: No lesions. Nose appeared normal. Throat: No exudate or erythema. NECK: Supple. No JVD, no carotid bruit. No lymphadenopathy or thyromegaly. LUNGS: Clear to auscultation. Percussion note normal. Chest symmetrical. HEART: S1, S2, no S3. No murmurs. No cyanosis or clubbing. No ascites. Pulses: Dorsalis pedis and posterior tibial pulses +1 to +2 both sides. ABDOMEN: Soft. Nontender. Bowel sounds active. No CVA tenderness. No mass felt. EXTREMITIES: No edema. Full range of motion of all extremities, equal. NEUROLOGIC: No focal deficit. Cranial nerves II through XII are grossly intact. No headache, no double vision or headache. SKIN: Not dry. Intact. Turgor - normal. LYMPHATIC: No palpable lymph nodes/no lymphedema. MUSCULOSKELETAL: Normal joints with no swelling. Muscle tone is normal. PLAN: 1. The patient has been on Norvasc. 2. Also, Captopril has been changed and I put her on Hyzaar. 3. Continue Betablockers as before. 4. DASH diet discussed and goal of blood pressure 135/85 or less, still awaiting addendum from CT angiogram. 5. The patient to be discharged home. CONDITION: Stable. TIME SPENT: More than 30 minutes. Plan and coordination of the patient's care discussed in the presence of nurse. RYANNE
--- NOTE | 2017-08-16 13:07 | PN ---
CODING FOR BILLING 08/09/17 LEVEL 5 08/10/17 INTERMEDIATE 08/11/17 INTERMEDIATE 08/12/17 DISCHARGE MTDD
== END 2017-08-12 14:10 | disposition home or self-care (01) | DRG 305 ==
LOC: ED 15:26 → SCU 19:41
PROVIDERS: ADMIT Internal Medicine; ATTEND Internal Medicine
DX: I16.0 Hypertensive urgency (principal); M33.20 Polymyositis, organ involvement unspecified; I70.1 Atherosclerosis of renal artery; M79.602 Pain in left arm; S40.862A Insect bite (nonvenomous) of left upper arm, initial encounter; I50.9 Heart failure, unspecified; E11.9 Type 2 diabetes mellitus without complications; G62.9 Polyneuropathy, unspecified; F41.8 Other specified anxiety disorders; M19.90 Unspecified osteoarthritis, unspecified site; I25.10 Atherosclerotic heart disease of native coronary artery without angina pectoris; I89.0 Lymphedema, not elsewhere classified; J44.9 Chronic obstructive pulmonary disease, unspecified; E04.2 Nontoxic multinodular goiter; F17.200 Nicotine dependence, unspecified, uncomplicated; E53.8 Deficiency of other specified B group vitamins; J01.90 Acute sinusitis, unspecified; E66.9 Obesity, unspecified; Z79.84 Long term (current) use of oral hypoglycemic drugs; Z79.899 Other long term (current) drug therapy
CPT/HCPCS: 36415; 76770; 80048; 80053; 82550; 82962; 83880; 84484; 85025; 93005; 93010; 96365; 99284

== ENCOUNTER 2017-08-26 09:34 | Outpatient (CLI) ==
--- NOTE | 2017-08-26 11:43 | MAMMO ---
EXAM: Bilateral digital diagnostic mammogram (2-D and 3-D) History: Left breast nodules seen on recent CT. Comparison: CT abdomen 08/10/2017 Findings: MLO and CC views of bilateral breasts demonstrate scattered fibroglandular breast parenchy ma. CAD was reviewed by the radiologist. Tomosynthesis was performed. Stable benign bilateral terry st calcifications. There are no dominant masses, no suspicious microcalcifications and no architectu ral distortions Impression: Benign stable mammogram. Recommend return to routine screening mammography schedule. BIRADS 2
== END 2017-08-26 09:35 | disposition home or self-care (01) ==
LOC: RAD 09:34
PROVIDERS: ATTEND Internal Medicine
DX: N63.0 Unspecified lump in unspecified breast (principal)

== ENCOUNTER 2018-08-05 11:07 | Emergency (ER) | payer OTHER ==
[2018-08-05 11:24] VITALS: BP 145/78; TEMP 98.2; BMI 45.7
--- NOTE | 2018-08-05 12:07 | ED.PDOC ---
General ED Provider: Dr. DAMIR LITTLEJOHN Chief Complaint: Eye Problem Stated Complaint: Patient states she started having redness and pain on the left eye with some drainage. Time Seen by Physician: 11:30 Mode of Arrival: Walk-In Information Source: Patient Primary Care Provider: MERCED CHAN Nursing and Triage Documentation Reviewed and Agree: Yes Does patient meet sepsis criteria?: No System Inflammatory Response Syndrome: Not Applicable Sepsis Protocol: For patient's 13 years and over: Temp is 96.8 and below OR 101 and greater Pulse >90 BPM Resp >20/minute Acutely Altered Mental Status Are patient's symptoms suggestive of a new infection, such as: -Pneumonia -Skin, Soft Tissue -Endocarditis -UTI -Bone, Joint Infection -Implantable Device -Acute Abdominal Infection -Wound Infection -Meningitis -Blood Stream Catheter Infection -Unknown EENT Complaint Exam - Eye Complaint/Exam Onset/Duration: 2 days Symptoms Are: Still present Timing: Constant Initial Severity: Moderate Current Severity: Moderate Location: Left Aggravating: Reports: Light Alleviating: Reports: None Associated Signs and Symptoms: Reports: Photophobia, Purulent drainage Eye Surgical History: Reports: None Orbit Findings: Normal Globe Findings: Intact Lid Findings: Normal Conjunctival Findings: Red, Exudate Corneal Findings: Cloudy Differential Diagnoses: Conjunctivitis Review of Systems - Review Of Systems Constitutional: Reports: No symptoms Eyes: Reports: Drainage, Inflammation, Pain, Photophobia Ears, Nose, Mouth, Throat: Reports: No symptoms Respiratory: Reports: No symptoms Cardiac: Reports: No symptoms GI: Reports: No symptoms : Reports: No symptoms Musculoskeletal: Reports: No symptoms Skin: Reports: No symptoms Neurological: Reports: No symptoms Endocrine: Reports: No symptoms Hematologic/Lymphatic: Reports: No symptoms All Other Systems: Reviewed and Negative Past Medical History - Past Medical History Previously Healthy: Yes Endocrine: Reports: DM 2 Cardiovascular: Reports: CAD, Hypertension, CHF Respiratory: Reports: None Hematological: Reports: None Gastrointestinal: Reports: None Genitourinary: Reports: None Neuro/Psych: Reports: Anxiety, Depression Musculoskeletal: Reports: Arthritis Cancer: Reports: None Last Menstrual Period: none Other Pertinent Past Medical History: lymphedema, polymyositis, cyst on kidney, thyroid nodules,ostoarthritis - Surgical History General Surgical History: Reports: Orthopedic, Other (KNEE/RT,HERNIA,SCAR TISSUE /ARMS), Unknown - Family History Family History: Reports: Unknown - Social History Smoking Status: Current every day smoker, Light tobacco smoker Hx Substance Use: Yes Alcohol Screening: None Physical Exam - Physical Exam Appearance: Well-appearing, Obese Pain Distress: Mild Eyes: Conjunctiva inflammed Neck: Supple Respiratory: Airway patent, Breath sounds clear, Breath sounds equal, Respirations nonlabored Cardiovascular: RRR, Pulses normal, No rub, No murmur GI/: Soft, Nontender, No masses, Bowel sounds normal, No Organomegaly Musculoskeletal: Normal strength, ROM intact, No edema, No calf tenderness Skin: Warm, Dry, Normal color Neurological: Sensation intact, Motor intact, Reflexes intact, Cranial nerves intact, Alert, Oriented Psychiatric: Anxious Critical Care Note - Critical Care Note Total Time (mins): 0 Course - Course Vital Signs: Temp Pulse Resp BP Pulse Ox 08/05/18 11:07 98.2 F 70 18 145/78 H 93 L Departure - Departure Time of Disposition: 12:10 Disposition: HOME SELF-CARE Discharge Problem: Conjunctivitis, acute Qualifiers: Acute conjunctivitis type: bacterial Laterality: left Qualified Code(s): H10.32 - Unspecified acute conjunctivitis, left eye Instructions: Conjunctivitis (ED) Condition: Stable Pt referred to PMD for follow-up: Yes IPMP verified?: No Additional Instructions: FOLLOW UP WITH THE EYE DOCTOR NEXT WEEK USE EYE DROPS PRESCRIBED. Prescriptions: Gentamicin Sulfate Opth [Gentak Opth Amanda] 2 drop OP Q3HR #10 drops Allergies/Adverse Reactions: Allergies duloxetine HCl [From Cymbalta] Allergy (Severe, Verified 08/05/18 11:14) Chest Tightness morphine Allergy (Intermediate, Verified 08/05/18 11:14) Unknown Home Medications: Ambulatory Orders Atenolol 50 mg PO BID 11/23/15 Folic Acid 800 mcg PO DAILY 11/23/15 Hydrocodone/Acetaminophen [Lortab 5-325 mg Tablet] 1 tab PO DAILY PRN 11/23/15 Metformin HCl [Glucophage] 500 mg PO DAILY 11/23/15 Ranitidine HCl 150 mg PO BID 11/23/15 Venlafaxine HCl [Effexor Xr] 150 mg PO DAILY 11/23/15 Aspirin [Aspirin EC] 81 mg PO DAILYWM 03/18/16 Losartan/Hydrochlorothiazide [Hyzaar 100-12.5 Tablet] 1 each PO DAILY #30 tablet 08/12/17 Captopril 100 mg PO BID 08/05/18 Gentamicin Sulfate Opth [Gentak Opth Amanda] 2 drop OP Q3HR #10 drops 08/05/18 Terbinafine HCl [Lamisil] 250 mg PO DAILY 08/05/18 Disposition Discussed With: Patient, Family
== END 2018-08-05 12:28 | disposition home or self-care (01) ==
LOC: ED 11:07
DX: H10.32 Unspecified acute conjunctivitis, left eye (principal); F17.210 Nicotine dependence, cigarettes, uncomplicated
CPT/HCPCS: 99282